=== PATIENT | female | born 1990 | race American Indian/Alaskan Native ===

== ENCOUNTER 2016-09-22 14:55 | Emergency (ER) | payer SELFPAY ==
[2016-09-22 16:27] LABS: Bilirubin,Urine NEG (Negative); Blood,Urine NEG (Negative); Ketones,Urine NEG (Negative); Leukocyte Esterase,Urine TR (Negative); Mucus,Urine 2+ /HPF; Nitrite,Urine NEG (Negative); Protein,Urine <15 mg/dL mg/dL (Negative); Urobilinogen,Urine < 2.0 mg/dL (<2.0)
--- NOTE | 2016-09-22 18:07 | Emergency Department Report ---
ED Female HPI - General Chief complaint: Urogenital-Female Stated complaint: VAG DISCHARGE/IRRITATION Time Seen by Provider: 09/22/16 18:07 Source: patient Mode of arrival: Ambulatory Limitations: No Limitations - History of Present Illness Initial comments: Patient here reports that she's been having vaginal discharge 2 weeks which is lumpy white and also yellowish in color. She is complaining of burning on urination. She said she does have unsafe sex and she is concerned about STDs and she wants to be treated for STDs. Denies any vaginal bleeding, abdominal pain or back pain. Denies any nausea or vomiting or fever or chills. Denies any sore throat. She is unaware if her partner is having symptoms. Last menstrual period was 09/19/2016 MD Complaint: vaginal discharge, dysuria, possible STD Onset/Timin -: week(s) Severity scale (0 -10): 0 Are you Now?: No Last Menstrual Period: 09/19/16 EDC: 06/26/17 Associated Symptoms: vaginal discharge, dysuria. denies: vaginal bleeding, abdominal pain, nausea/vomiting, fever/chills, headaches, loss of appetite, hematuria, rash, seizure, shortness of breath, syncope, weakness - Related Data Sexually active: Yes (practice unsafe sex) Previous Rx's Medication Instructions Recorded Last Taken Type Fluconazole [Diflucan TAB] 100 mg PO QDAY #2 tablet 09/22/16 Unknown Rx metroNIDAZOLE [Flagyl] 500 mg PO Q12HR #14 tab 09/22/16 Unknown Rx Allergies Allergy/AdvReac Type Severity Reaction Status Date / Time No Known Allergies Allergy Unverified 09/22/16 16:06 ED Review of Systems ROS: Stated complaint: VAG DISCHARGE/IRRITATION Other details as noted in HPI Comment: All other systems reviewed and negative Constitutional: denies: chills, fever ENT: denies: throat pain Respiratory: no symptoms reported Cardiovascular: denies: chest pain, palpitations, edema, syncope Gastrointestinal: denies: abdominal pain, nausea, vomiting, diarrhea, constipation Genitourinary: dysuria, discharge. denies: urgency, frequency, hematuria, abnormal menses, dyspareunia Musculoskeletal: denies: back pain, arthralgia, myalgia Skin: denies: rash Neurological: denies: headache, abnormal gait, vertigo ED Past Medical Hx - Past Medical History Previous Medical History?: Yes Additional medical history: HEP B - Surgical History Past Surgical History?: Yes Additional Surgical History: LIVER BIOPSY - Family History Family history: hypertension - Social History Smoking Status: Never Smoker Substance Use Type: Alcohol, Marijuana - Medications Home Medications: Home Medications Medication Instructions Recorded Confirmed Last Taken Type Fluconazole [Diflucan TAB] 100 mg PO QDAY #2 tablet 09/22/16 Unknown Rx metroNIDAZOLE [Flagyl] 500 mg PO Q12HR #14 tab 09/22/16 Unknown Rx ED Physical Exam - General Limitations: No Limitations General appearance: alert, in no apparent distress - Head Head exam: Present: atraumatic, normocephalic, normal inspection - Eye Eye exam: Present: normal appearance, PERRL, EOMI Pupils: Present: normal accommodation - ENT ENT exam: Present: normal exam, normal orophraynx, mucous membranes moist, TM's normal bilaterally, normal external ear exam - Neck Neck exam: Present: normal inspection, full ROM. Absent: tenderness, meningismus, lymphadenopathy - Respiratory Respiratory exam: Present: normal lung sounds bilaterally. Absent: respiratory distress, chest wall tenderness - Cardiovascular Cardiovascular Exam: Present: regular rate, normal rhythm, normal heart sounds - GI/Abdominal GI/Abdominal exam: Present: soft, normal bowel sounds. Absent: distended, tenderness, guarding, rebound, rigid - External exam: Present: normal external exam. Absent: erythema, swelling, lesions, lacerations, ecchymosis, bleeding Speculum exam: Present: vaginal discharge, cervical discharge. Absent: erythema , vaginal bleeding, foreign body, tissue, laceration Bi-manual exam: Present: normal bi-manual exam. Absent: cervical motion tendernes, adnexal tenderness, adnexal mass, uterine enlargement, uterine tenderness - Extremities Exam Extremities exam: Present: normal inspection, full ROM, normal capillary refill. Absent: tenderness, pedal edema, joint swelling, calf tenderness - Back Exam Back exam: Present: normal inspection, full ROM. Absent: tenderness, CVA tenderness (R), CVA tenderness (L), muscle spasm, paraspinal tenderness, vertebral tenderness, rash noted - Neurological Exam Neurological exam: Present: alert, oriented X3, normal gait, reflexes normal. Absent: motor sensory deficit - Psychiatric Psychiatric exam: Present: normal affect, normal mood - Skin Skin exam: Present: warm, dry, intact, normal color. Absent: rash ED Course Vital Signs 09/22/16 16:06 Temperature 98.1 F Pulse Rate 75 Respiratory 18 Rate Blood Pressure 122/83 O2 Sat by Pulse 100 Oximetry - Reevaluation(s) Reevaluation #1: 09/22/16 19:36 Patient receive Rocephin 250 mg to cover gonorrhea and Zithromax 1 g by mouth for chlamydia. ED Medical Decision Making - Lab Data Lab Results 09/22/16 09/22/16 Range/Units 16:09 16:09 Urine Color Yellow (Yellow) Urine Turbidity Clear (Clear) Urine pH 6.0 (5.0-7.0) Ur Specific [place] 1.019 (1.003-1.030) Urine Protein <15 mg/dl (Negative) mg/dL Urine Glucose (UA) Neg (Negative) mg/dL Urine Ketones Neg (Negative) mg/dL Urine Blood Neg (Negative) Urine Nitrite Neg (Negative) Urine Bilirubin Neg (Negative) Urine Urobilinogen < 2.0 (<2.0) mg/dL Ur Leukocyte Esterase Tr (Negative) Urine WBC (Auto) 1.0 (0.0-6.0) /HPF Urine RBC (Auto) 2.0 (0.0-6.0) /HPF U Epithel Cells (Auto) 4.0 (0-13.0) /HPF Urine Mucus 2+ /HPF Urine HCG, Qual Negative (Negative) Wet prep revealed greater than 20% clues cells, no trichomonas and few yeast. Also with many polymorphonuclear cell CHL pended Urine culture pending - Medical Decision Making ED course: Patient here complaining of vaginal discharge for 2 weeks and concern for STD. Patient and requests to be treated for all STD if possible. I gave her results of wet prep and told her that she has bacterial vaginosis and yeast without any Trichomonas. I also told her that there is a high probability that she can have gonorrhea and chlamydia because vaginal swab came back with many polymorphonuclear cell. Patient given information on urinalysis and test. I told her it is not definitive that she has gonorrhea and chlamydia but since she wants to be treated to go ahead and treat her in emergency room. Told her gonorrhea and chlamydia tests will be back in 5-7 days. Patient treated with Rocephin to urgent 50 mg IM and azithromycin 1 g by mouth for her low gonorrhea and chlamydia. I discussed diagnosis and treatment plan with patient. I also discussed with her that she needs to practice safe sex and refrain from having sexual activity over the next 2 weeks. I also discussed with her that she needs to follow up with [facility] for Pap smear. I discussed with her that she needs to refrain from drinking all call while taking Flagyl as this medication has negative reaction with all call. Patient discharged home with prescription for Diflucan to cover yeast infection and Flagyl for bacterial vaginosis. Critical care attestation.: If time is entered above; I have spent that time in minutes in the direct care of this critically ill patient, excluding procedure time. ED Disposition Clinical Impression: Bacterial vaginosis, Vaginal yeast infection, Dysuria, Concern about STD in female without diagnosis, Vaginal discharge Disposition: TO HOME OR SELFCARE Is pt being admited?: No Does the pt Need Aspirin: No Condition: Stable Instructions: Bacterial Vaginosis (ED), Safe Sex (ED), Sexually Transmitted Diseases in Adolescents (ED), Vaginitis (ED), Dysuria (ED) Additional Instructions: Please practice safe sex Your results should be back in 5-7 days Please refrain from having sexual activity over the next 2 weeks Follow-up with [facility] for Pap smear Please do not drink head concierge while taking in Flagyl as this medication can have negative reaction with all call. Prescriptions: Fluconazole [Diflucan TAB] 100 mg PO QDAY #2 tablet metroNIDAZOLE [Flagyl] 500 mg PO Q12HR #14 tab Referrals: EDWIN SINGLETON MD [Staff Physician] - 3-5 Days [facility] [Outside] - 3-5 Days Forms: STI Treatment and Prevention, Work/School Release Form(ED)
[2016-09-22] MEDS ORDERED: ROCEPHIN IM ONE (19:29)
[2016-09-22] MEDS ORDERED: ZITHROMAX PO ONE (19:29)
[2016-09-22] MEDS ORDERED: XYLOCAINE 1% MPF 5 mL INFILTRATI ONE (19:29)
[2016-09-22 20:05] VITALS: BP 143/88
== END 2016-09-22 20:03 | disposition home or self-care (01) ==
LOC: ED 14:55
DX: N76.0 Acute vaginitis (principal); B37.3 Candidiasis of vulva and vagina; F12.10 Cannabis abuse, uncomplicated
CPT/HCPCS: 81001; 81025; 87086; 87210; 87591; 96372; 99284; J0696

== ENCOUNTER 2017-01-13 14:38 | Emergency (ER) | payer SELFPAY ==
[2017-01-13 15:25] VITALS: BP 122/69
[2017-01-13 16:04] LABS: Basophils % (Auto) 0.8 % (0.0-1.8); Eosinophils % (Auto) 1.3 % (0.0-4.3); Hematocrit 41.5 % (30.3-42.9); Hemoglobin 13.9 gm/dl (10.1-14.3); Mean Corpuscular HGB Conc 34 % (30-34); Mean Corpuscular Hemoglobin 29 pg (28-32); Mean Corpuscular Volume 85 fl (79-97); Platelet Count 246 K/mm3 (140-440); Red Blood Count 4.86 M/mm3 (3.65-5.03); Red Cell Distribution Width 13.6 % (13.2-15.2); White Blood Count 5.5 K/mm3 (4.5-11.0)
[2017-01-13 16:05] LABS: Bilirubin,Urine NEG (Negative); Blood,Urine NEG (Negative); Ketones,Urine NEG (Negative); Leukocyte Esterase,Urine TR (Negative); Nitrite,Urine NEG (Negative); Protein,Urine <15 mg/dL mg/dL (Negative)
[2017-01-13 16:06] LABS: Alanine Aminotransferase 16 units/L (7-56); Albumin 4.3 g/dL (3.9-5); Albumin/Globulin Ratio 1.9 %; Alkaline Phosphatase 50 units/L (35-129); Anion Gap 18 mmol/L; BUN/Creatinine Ratio 18; Blood Urea Nitrogen 9 mg/dL (7-17); Calcium 8.9 mg/dL (8.4-10.2); Carbon Dioxide 23 mmol/L (22-30); Chloride 102.5 mmol/L (98-107); Glucose 78 mg/dL (65-100); Lipase 40 units/L (13-60); Potassium 4.4 mmol/L (3.6-5.0); Sodium 139 mmol/L (137-145); Total Protein 6.6 g/dL (6.3-8.2)
== END 2017-01-13 18:30 | disposition left against medical advice (07) ==
LOC: ED 14:38
DX: R10.9 Unspecified abdominal pain (principal); Z53.21 Procedure and treatment not carried out due to patient leaving prior to being seen by health care provider
CPT/HCPCS: 36415; 80053; 81001; 83690; 85025

== ENCOUNTER 2017-03-07 09:34 | Emergency (ER) | payer OTHER ==
[2017-03-07 10:43] LABS: Eosinophils % (Auto) 4.5 % (0.0-4.3); Hematocrit 41.9 % (30.3-42.9); Hemoglobin 13.9 gm/dl (10.1-14.3); Mean Corpuscular HGB Conc 33 % (30-34); Mean Corpuscular Hemoglobin 29 pg (28-32); Mean Corpuscular Volume 88 fl (79-97); Platelet Count 239 K/mm3 (140-440); Red Blood Count 4.77 M/mm3 (3.65-5.03); Red Cell Distribution Width 13.7 % (13.2-15.2); White Blood Count 4.1 K/mm3 (4.5-11.0)
[2017-03-07 10:44] LABS: Urine Drugs of Abuse Note Disclamer
[2017-03-07 10:48] LABS: BUN/Creatinine Ratio 13; Blood Urea Nitrogen 8 mg/dL (7-17); Calcium 9.3 mg/dL (8.4-10.2); Carbon Dioxide 24 mmol/L (22-30); Glucose 80 mg/dL (65-100)
[2017-03-07 10:49] LABS: Anion Gap 20 mmol/L; Potassium 4.6 mmol/L (3.6-5.0); Sodium 141 mmol/L (137-145)
[2017-03-07 11:01] LABS: Bilirubin,Urine NEG (Negative); Blood,Urine NEG (Negative); Ketones,Urine TR mg/dL (Negative); Leukocyte Esterase,Urine NEG (Negative); Mucus,Urine 3+ /HPF; Nitrite,Urine NEG (Negative); Protein,Urine <15 mg/dL mg/dL (Negative); Urobilinogen,Urine < 2.0 mg/dL (<2.0)
[2017-03-07 16:08] VITALS: BP 128/74
== END 2017-03-07 21:03 | disposition left against medical advice (07) ==
LOC: ED 09:34
DX: N89.8 Other specified noninflammatory disorders of vagina (principal); F41.9 Anxiety disorder, unspecified; F32.9 Major depressive disorder, single episode, unspecified; Z53.21 Procedure and treatment not carried out due to patient leaving prior to being seen by health care provider
CPT/HCPCS: 36415; 80048; 80307; 81001; 81025; 85025; G0480; 80320